=== PATIENT | female | born 1975 | race Caucasian/White ===

== ENCOUNTER 2021-04-19 10:41 | Emergency (ER) | payer OTHER ==
[~2021-04-19] VITALS: Ht 160 cm; Wt 97.5 kg
[2021-04-19] MEDS ORDERED: SYNTHROID100 MCG PO (10:50)
[2021-04-19] MEDS ORDERED: ATORVASTATIN CA10 MG PO (10:51)
[2021-04-19] MEDS ORDERED: PRILOSEC OTC20 MG PO (10:51)
== END 2021-04-19 20:29 | disposition home or self-care (01) ==
LOC: ER 10:41
DX: R10.2 Pelvic and perineal pain (principal); N93.8 Other specified abnormal uterine and vaginal bleeding